=== PATIENT | female | born 1965 | race African-American/Black ===

== ENCOUNTER → 2016-10-20 | Day surgery (SDC) | payer OTHER ==
[~2016-10-20] MED LIST: ADVIL200 M3 PO; AMLODIPINE BESYL5 MG PO; ASPIRIN81 M2 PO; GERITOL COMPLET1 TA1 PO; HYDROCHLOROTHIA25 MG PO; MULTI VITAMIN1 EACH PO; MYLANTA125 MG PO; PEPCID AC20 M2 PO
--- NOTE | ~2016-10-20 | OR ---
Unit #: [id number] #: [id number] Patient: AUSTEN CHUN [id number] [address] [address] [id number] O MR#: [id number] NAME: AUSTEN CHUN ROOM: Date of Procedure: 10/20/2016 Admission Date: 10/20/2016 Surgeon: Khang Lynn M.D. : 1965 Attending Physician: Khang Lynn M.D. Primary Care Physician: Frank Chaudhry M.D. PROCEDURE OPERATIVE NOTE PREOPERATIVE DIAGNOSIS Screening colonoscopy. POSTOPERATIVE DIAGNOSIS Internal hemorrhoids. PROCEDURE PERFORMED Colonoscopy. ANESTHESIA Monitored anesthesia care. PROCEDURE PERFORMED Colonoscopy. ENDOSCOPIST Khang Lynn M.D. DESCRIPTION OF PROCEDURE After adequate explanation of the risks, benefits and alternatives of the procedure, an informed consent was obtained from the patient. The patient was brought to the Endoscopy Suite. Intravenous sedation was administered. The patient was placed in the left lateral position. The colonoscope was introduced into the rectum and advanced to the cecum without difficulty. Once in the cecum, the anatomic landmarks were identified very well. The ileocecal valve was examined. The appendiceal orifice was examined. The scope was slowly withdrawn with the findings as noted in the next section. Adequate mucosal visualization of the colonic mucosa was done upon slow withdrawal. The scope was slowly withdrawn into the rectum and a retroflexed view was also obtained. The scope was withdrawn. The patient tolerated the procedure very well. FINDINGS CECUM: Normal. ILEOCECAL VALVE: Normal. APPENDICEAL ORIFICE: Normal. ASCENDING COLON: Normal. TRANSVERSE COLON: Normal. Unit #: [id number] #: [id number] Patient: AUSTEN CHUN DESCENDING COLON: Normal. SIGMOID COLON: Normal. RECTUM: Internal hemorrhoids. Scope withdraw time was over six minutes. ASSESSMENT AND PLAN The patient is a 51 year old female who presented for screening colonoscopy. Noted to have evidence of internal hemorrhoids. No polyps, neoplastic lesions noted. The patient was started on high-fiber diet. Follow with office as needed. Dictated by... Lawrence Doty/lis TD: 10/20/2016 16:18 JOB #: [id number] CC: Frank Chaudhry M.D. PROCEDURE OPERATIVE NOTE Page 1 of 1 X Khang Lynn MD X PROCEDURE OPERATIVE NOTE
== END | disposition home or self-care (01) ==
LOC: COPS 10:27
DX: Z12.11 Encounter for screening for malignant neoplasm of colon (principal); K64.8 Other hemorrhoids; K21.9 Gastro-esophageal reflux disease without esophagitis; I10 Essential (primary) hypertension; F17.200 Nicotine dependence, unspecified, uncomplicated; Z88.0 Allergy status to penicillin; Z91.040 Latex allergy status; Z91.018 Allergy to other foods; Z79.82 Long term (current) use of aspirin
CPT/HCPCS: 84703; J2250